=== PATIENT | male | born 1970 | race Caucasian/White ===

== ENCOUNTER 2017-01-11 07:14 | Inpatient (IN) | payer BC ==
[2017-01-11] MEDS ORDERED: NS 0.9% 1000 ML* 1,000 ML IV ONE (08:00)
[2017-01-11] MEDS ORDERED: Vancomycin(*) 1,000 MG in NS 0.9% 250 ML* 250 ML IVPB ONE (08:04)
[2017-01-11] MEDS ORDERED: Ciprofloxacin 400MG IVPREMIX(* 400 MG/200 ML BAG IVPB ONE (08:04)
--- NOTE | 2017-01-11 08:37 | RAD ---
HISTORY: Left middle finger pain COMPARISONS: None VIEWS: 4, Frontal, lateral, and oblique views of the left hand FINDINGS: BONE DENSITY: Normal. BONES: There is no displaced fracture. There is remote posttraumatic deformity to the distal third phalanx JOINTS: There is no arthropathy. ALIGNMENT: There is no dislocation. SOFT TISSUES: Unremarkable. OTHER FINDINGS: There is a punctate radiopaque foreign body in the soft tissues overlying the hypothenar eminence IMPRESSION: 1. NO ACUTE OSSEOUS INJURY. 2. PUNCTATE RADIOPAQUE FOREIGN BODY IN THE SOFT TISSUES OVERLYING THE ULNAR ASPECT OF THE PALM. 3. IF SYMPTOMS PERSIST, RECOMMEND REPEAT IMAGING.
[2017-01-11 08:39] LABS: Hematocrit 44 % (42-52); Hemoglobin 15.1 g/dl (14.0-18.0); Mean Corpuscular HGB Conc 35 g/dl (31-36); Mean Corpuscular Hemoglobin 33 pg (27-31); Mean Corpuscular Volume 95 fL (80-94); Mean Platelet Volume 7 um3 (7.4-10.4); Red Cell Distribution Width 13 % (10.5-15); White Blood Count 7.1 10^3/ul (3.5-10.8)
[2017-01-11 08:56] LABS: Albumin 4.3 g/dL (3.2-5.2); BUN/Creatinine Ratio 19.4 (8-20); C Reactive Protein 6.32 mg/L (< 5.00); Calcium 9.2 mg/dL (8.6-10.3); EGFR African American 151.1 (>60); EGFR Non-African American 117.5 (>60); Globulin 2.6 g/dL (2-4); Potassium 4.3 mmol/L (3.5-5.0); Total Bilirubin 0.4 mg/dL (0.2-1.0); Total Protein 6.9 g/dL (6.4-8.9)
[2017-01-11] MEDS ORDERED: diPHENhydraMINE IV* 50 MG/ML 1 ml VIAL (BENADRYL) IV PRN (09:47)
[2017-01-11] MEDS ORDERED: Morphine INJ* 2 MG/ML 1 ML SYRINGE IV PRN (09:47)
[2017-01-11 09:52] LABS: Erythrocyte Sed Rate 9 mm/Hr (0-14)
[2017-01-11 09:53] LABS: Urine Bilirubin Negative (Negative); Urine Glucose Negative (Negative); Urine Nitrite Negative (Negative)
[2017-01-11] MEDS ORDERED: Lidocaine 2% PF * 5 ML VIAL ONE (12:20)
[2017-01-11] MEDS ORDERED: Midazolam* 1 MG/ML 5 ML VIAL (5 MG) ONE (12:20)
[2017-01-11] MEDS ORDERED: Ketorolac INJ* 30 MG/ML 1 ML VIAL ONE (12:20)
[2017-01-11] MEDS ORDERED: Propofol* 10 MG/ML 20 ML BTL IV PUSH ONE (12:20)
[2017-01-11] MEDS ORDERED: Ondansetron INJ* 2 MG/ML VIAL ONE (12:20)
[2017-01-11] MEDS ORDERED: KETAMINE HCL* 50 MG/ML 10 ML VIAL ONE (12:20)
[2017-01-11] MEDS ORDERED: fentaNYL* 50 MCG/ML 2 ML VIAL (100 MCG VIAL) ONE ×2 (12:20→13:19)
--- NOTE | 2017-01-11 12:41 | PN ---
Progress Note - Progress Note Note: Full H&P note dictated by QUE Yoder, and awaiting basin cleaner. I saw and examined Kenan this morning in the emergency room. He has a puncture type wound over the DIP flexion crease in the left middle finger. He says he developed that wound a couple of weeks ago but it unsure what injured the finger. 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 A few days later the finger swelled up and became painful. He went to the urgent care and was given cephelexin which did not help at all. A couple of days later he returned to the urgent care and was given augmentin. This did initially help and the finger improved somewhat. Two days later while he was camping here near [place] the pain became to significantly increase again and he noticed more swelling in the finger but not too much redness. When the pain was even worse this morning he came to the emergency department. He has moderate to severe pain whenever he bends the finger. It is better when he holds it still in a slightly flexed position. He had already been given a dose of vancomycin and ciprofloxacin in the emergency department prior to my being consulted. VSS Exam shows fusiform swelling of the left middle finger. He is tender all along the flexor tendons from the DIP to the carpal tunnel. He holds the finger in slight flexion and has significant pain with any passive flexion or extension of the finger. There is a healing puncture type wound over the ulnar aspect of the DIP flexion crease. The finger is slightly warm. There is just mild erythema in the finger. He has a slightly shortened finger from a prior traumatic amputation of the distal tip as a child. Imaging shows no bony anomalies in the finger. There is a radioopaque foreign body in the ulnar palm anterior to the fifth metacarpal. A/P: Clinical concern for left middle finger pyogenic flexor tenosynovitis. Plan is for I&D and then IV antibiotics. ID consult. Will obtain cultures.
[2017-01-11] MEDS ORDERED: Ondansetron INJ* 2 MG/ML VIAL IV PRN (12:50)
[2017-01-11] MEDS ORDERED: oxyCODONE/Acetamin 5/325 MG* TAB PO PRN (12:50)
[2017-01-11] MEDS ORDERED: fentaNYL* 50 MCG/ML 2 ML VIAL (100 MCG VIAL) IV PRN (12:50)
--- NOTE | 2017-01-11 12:56 | HP ---
HISTORY AND PHYSICAL: DATE OF ADMISSION: 01/11/17 PROVIDER: Dr. Fitz Menendez. CHIEF COMPLAINT: Left 3rd finger pain and swelling. HISTORY OF PRESENT ILLNESS: Mr. Fletcher is a 46-year-old gentleman who presents to the emergency room today with complaints of ongoing left finger pain and swelling that started about 1.5-2 weeks ago. He states that he did have a small wound near the DIP joint of the palmar third finger that healed over. He' s unsure how he got the wound. He works at a [employer] and he gets wounds on the hands all the time. A couple of days later the finger began to swell. He has been seen a couple of times at a remote Urgent Care Facility over the last couple of weeks and had been put on oral antibiotics, first cephalexin and then augmentin. He states that he initially noticed some mild improvement after he started the augmentin; however, about 2 days ago the pain and swelling got significantly worse despite being on antibiotics. He did have a partial amputation to the very most distal tip of the finger several years ago; however , he has had no complications with that since. PAST MEDICAL HISTORY: None. PAST SURGICAL HISTORY: Left knee arthroscopy and tonsillectomy and myringotomy tubes as a child. He reports no complications with anesthesia with any of those procedures. CURRENT MEDICATIONS: 1. Multivitamin daily. 2. Augmentin. ALLERGIES: No known drug allergies. 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 He lives with his . He drinks a few alcoholic beverages during the week. He smokes a pack per day but has been cutting back recently. He denies any illicit drug use. REVIEW OF SYSTEMS: Constitutional: Negative for recent hospitalizations, fevers, chills, night sweats or unexplained weight loss. HEENT: Negative for headaches, vision changes, hearing changes, sore throat or runny nose. Cardiovascular: Negative for chest or arm pain with exertion and history of heart attack, heart murmur, heart palpitations, high blood pressure, embolism or deep vein thrombosis. Respiratory: Negative for chronic cough, shortness of breath with exertion, asthma or COPD. Gastrointestinal: Negative for heartburn , nausea, vomiting. Positive for recent diarrhea due to the antibiotics. Negative for constipation or GERD. Genitourinary: Negative for nighttime urination, frequency of urination, urinary tract infection of kidney problems. Musculoskeletal: Negative for any joint pain, back pain, neck pain or recent fractures. Skin: Negative for rashes, lesions, lumps or sores. Neurologic: Negative for history of seizures, stroke, epilepsy, depression, anxiety. Endocrine: Negative for diabetes or thyroid problems. Hematology: Negative for easy bleeding, bruising or anemia. PHYSICAL EXAMINATION GENERAL: He is a well-developed, well-nourished, pleasant male in no acute distress at rest. He is alert and oriented x3 with appropriate mood and affect. VITAL SIGNS: The patient is 5 feet 9 inches, 210 pounds, blood pressure 143/93 , pulse of 77, respirations 18, oxygen saturation 100, temperature 98.0. HEENT: Normocephalic, atraumatic. His hearing and vision are grossly intact. NECK: His trachea is midline. RESPIRATORY: Lungs clear to auscultation bilaterally. No wheezes, rales or rhonchi. CARDIOVASCULAR: Regular rate and rhythm. No murmurs, rubs or gallops. Normal S1, S2. ABDOMEN: Soft, nondistended, nontender. Normal bowel sounds. EXTREMITIES: Exam of the left upper extremity, there is a well-healed wound to the distal palmar aspect of the DIP joint. There is diffuse edema throughout the finger. He is tender to palpation along the flexor tendon on the palmar aspect of the hand. This extends about to the mid palm. He has no tenderness proximal to that and into the wrist. He is able to flex the finger but is significatnly limited secondary to pain and stiffness. He has painful but full passive extension of the finger. His sensation to light touch is intact. He has 2+ radial pulse. IMPRESSION: Clinical picture concerning for left third finger flexor tendon tenosynovitis. PLAN: The patient is to undergo left third finger irrigation and debridement by Dr. Menendez later today. He will be admitted for IV antibiotics postoperatively. The risks, benefits, and postoperative course were discussed with the patient and he is willing to proceed. All of his questions were answered to his full satisfaction. QUE RAHMAN [id number]/[facility] #: [id number] CHER
[2017-01-11] MEDS ORDERED: Famotidine IV* 10 MG/ML 2 ML (20 mg) ONE (13:10)
[2017-01-11] MEDS ORDERED: HYDROmorphone* 1 MG/ML 1 ML SYR ONE (14:12)
[2017-01-11] MEDS ORDERED: Bupivacaine 0.5% SDV PF* 30 ML VIAL ONE (14:17)
[2017-01-11] MEDS ORDERED: HYDROcodone/ACETAMIN 5-325 MG* 1 TAB PO PRN (16:09)
[2017-01-11] MEDS ORDERED: ZOSYN 3.375 GM x ONE DOSE over 30 miuntes IVPB ×2 (17:00)
[2017-01-11] MEDS ORDERED: Vancomycin per Pharmacy* NOTE FOLLOW UP PRN (17:20)
[2017-01-11] MEDS: Vancomycin(*) 1,000 MG in NS 0.9% 250 ML* 250 ML IVPB SCH (17:57)
--- NOTE | 2017-01-11 18:25 | ED ---
Charles Diaz Auryana, scribed for Mervin Davalos MD on 01/11/17 at 0741 . Skin Complaint - HPI Summary HPI Summary: 46 year old male presents with left middle finger swelling worse since yesterday. Patient states that the pain is now traveling into his hand. Patient reports that he discovered a small cut on 12/24/16 and was seen at Urgent care - ABX 01/03/17. He reports that the pain and swelling is unimproved with Augmentin ABX - stated was improving until yesterday. Pain is worse with flexion and extension of the finger. PMHx is significant for meniscus tear, ear surgery, and finger surgery - reattachment. He denies any FHx. SHx is significant for tobacco and alcohol use but denies any recreational drug use. - History of Current Complaint Chief Complaint: EDRashSkinAbscess Time Seen by Provider: 01/11/17 07:34 Stated Complaint: POSSIBLE INFECTION Hx Obtained From: Patient Onset/Duration: Started Days Ago, Atraumatic, Still Present, Worse Since - yesterday Skin Exposure Onset/Duration: Weeks Ago - reports cut 12/24/16 Timing: Constant Onset Severity: Mild Current Severity: Moderate Pain Intensity: 5 Pain Scale Used: 0-10 Numeric Skin Location: Diffuse - left middle finger Character: Swelling, Pain Aggravating Symptom(s): Other: - movement Alleviating Symptom(s): Other: - no improvement with abx Associated Signs & Symptoms: Negative Similar Episode/Dx as: see HPI - Allergy/Home Medications Allergies/Adverse Reactions: Allergies Allergy/AdvReac Type Severity Reaction Status Date / Time [place] Allergy Hives Verified 01/11/17 07:16 PMH/Surg Hx/FS Hx/Imm Hx Musculoskeletal History: Reports: Other Musculoskeletal History - meniscus tear - Surgical History Surgery Procedure, Year, and Place: ear surgery, finger surgery - reattachment Infectious Disease History: No Infectious Disease History: Denies: Traveled Outside the [place] in Last 30 Days - Family History Known Family History: Positive: Diabetes - Social History Occupation: Employed Full-time - other Lives: With Family Alcohol Use: Occasionally Hx Substance Use: No Substance Use Type: Reports: None Hx Tobacco Use: Yes Smoking Status (MU): Current Every Day Smoker Review of Systems Constitutional: Negative Eyes: Negative ENT: Negative Cardiovascular: Negative Respiratory: Negative Gastrointestinal: Negative Genitourinary: Negative Positive: Edema - left middle finger, Other - left middle finger pain Positive: Other - left middle finger swelling Neurological: Negative Psychological: Normal All Other Systems Reviewed And Are Negative: Yes Physical Exam - Summary Physical Exam Summary: VITAL SIGNS: Reviewed. GENERAL: Patient is a well-developed and nourished male who is lying comfortable in the stretcher. Patient is not in any acute respiratory distress. HEAD AND FACE: No signs of trauma. No ecchymosis, hematomas or skull depressions. No sinus tenderness. EYES: PERRLA, EOMI x 2, No injected conjunctiva, no nystagmus. EARS: Hearing grossly intact. Ear canals and tympanic membranes are within normal limits. MOUTH: Oropharynx within normal limits. NECK: Supple, trachea is midline, no adenopathy, no JVD, no carotid bruit, no c- spine tenderness, neck with full ROM. CHEST: Symmetric, no tenderness at palpation LUNGS: Clear to auscultation bilaterally. No wheezing or crackles. CVS: Regular rate and rhythm, S1 and S2 present, no murmurs or gallops appreciated. ABDOMEN: Soft, non-tender. No signs of distention. No rebound no guarding, and no masses palpated. Bowel sounds are normal. EXTREMITIES: left middle finger swelling with good ROM - pain with flexion and extension. otherwise FROM in all other major joints, no edema, no cyanosis or clubbing. NEURO: Alert and oriented x 3. No acute neurological deficits. Speech is normal and follows commands. SKIN: Dry and warm Triage Information Reviewed: Yes Vital Signs On Initial Exam: Initial Vitals Temp Pulse Resp BP Pulse Ox 98.0 F 77 18 143/93 100 01/11/17 07:18 01/11/17 07:18 01/11/17 07:18 01/11/17 07:18 01/11/17 07:18 Vital Signs Reviewed: Yes Diagnostics - Vital Signs Vital Signs Temp Pulse Resp BP Pulse Ox 01/11/17 07:18 98.0 F 77 18 143/93 100 - Laboratory Result Diagrams: 01/11/17 08:20 01/11/17 08:20 Lab Statement: Any lab studies that have been ordered have been reviewed, and results considered in the medical decision making process. - Radiology left hand XR Xray Interpretation: Positive (See Comments) - IMPRESSION: 1. NO ACUTE OSSEOUS INJURY. 2. PUNCTATE RADIOPAQUE FOREIGN BODY IN THE SOFT TISSUES OVERLYING THE ULNAR ASPECT OF THE PALM. 3. IF SYMPTOMS PERSIST, RECOMMEND REPEAT IMAGING. Radiology Interpretation Completed By: Radiologist Course/Dx - Course Assessment/Plan: Test results WNL except glucose 124 and CRP 6.3 . UA is negative for U.T.I. Hand XR IMPRESSION: 1. NO ACUTE OSSEOUS INJURY. 2. PUNCTATE RADIOPAQUE FOREIGN BODY IN THE SOFT TISSUES OVERLYING THE ULNAR ASPECT OF THE PALM. 3. IF SYMPTOMS PERSIST, RECOMMEND REPEAT IMAGING. In the ER course , patient given IV fluids, vancomycin, and Cipro because I am concerned about tendon synovitis. At this time, discuss Dr. Menendez hand surgery. He came to assess patient, and after assessment, he recommends admission to his services for further workup and management. Patient is hemodynamically stable and A&O x3. Dx: tendon synovitis. - Diagnoses Provider Diagnoses: tendon synovitis - Physician Notifications Discussed Care Of Patient With: Dr. Menendez Time Discussed With Above Provider: 07:59 - will see patient in ED; agrees to admit to the OR Instructed by Provider To: Other - admit to OR Discharge - Discharge Plan Condition: Stable Disposition: OTHER Discharge Disposition Comment: admit to the OR The documentation as recorded by the Charles perez Auryana accurately reflects the service I personally performed and the decisions made by me, Mervin Davalos MD.
[2017-01-11] MEDS: ZOSYN 3.375 GM Q8H per EXTENDED INFUSION IVPB SCH ×2 (21:10)
[2017-01-11] MEDS: Ibuprofen TAB* 600 MG PO PRN (21:16)
[2017-01-12] MEDS: Vancomycin(*) 1,000 MG in NS 0.9% 250 ML* 250 ML IVPB SCH ×4 (02:07→22:01)
--- NOTE | 2017-01-12 03:46 | OP ---
OPERATIVE REPORT: DATE OF OPERATION: 01/11/17 - inpatient, room #338-01 DATE OF : 70 SURGEON: Fitz Menendez MD MEMBERSHIP ASSISTANT: QUE Mireles ANESTHESIOLOGIST: Dr. Edwards. ANESTHESIA: General. PRE-OP DIAGNOSIS: Left middle finger pyogenic flexor tenosynovitis. POST-OP DIAGNOSES: 1. Left middle finger pyogenic flexor tenosynovitis. 2. Left mid palmar space infection. PROCEDURE PERFORMED: 1. I and D of left middle finger flexor tendon sheath. 2. I and D of left hand mid-palmar space. 3. Flexor tendon tenosynovectomy, left middle finger in the palm. INDICATIONS: Kenan is a 46-year-old gentleman, who about a week and a half ago had a wound near the DIP joint of the left middle finger. 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 Couple of days later , it started to hurt more. He went to the Urgent Care and got put on Keflex and then a couple of days later, he went back because it was not getting better and he got put on Augmentin. The finger was feeling better, but was still sore and quite painful. Couple of days later, it started getting more painful, so while he was camping out here in [place], he came to the emergency room. I saw him there and his clinical picture is very concerning for pyogenic flexor tendon tenosynovitis. Prior to my being consulted, he had already received a dose of vancomycin and ciprofloxacin in the ED. I talked to Kenan about the need that I felt to perform an I and D. We talked about risks and benefits and he elected to proceed. ESTIMATED BLOOD LOSS: 5 mL. COMPLICATIONS: None. FINDINGS: Extensive murky fluid all along the flexor tendons. There was very inflamed and poor looking tenosynovium all about the flexor tendons starting just proximal to the A1 jerrica, going back up towards the palm. DESCRIPTION OF PROCEDURE: Kenan was seen in the preoperative holding area. The correct site, side, and procedure were identified. We came back to the operating room where general anesthesia was induced and we had the arm prepped and draped in the usual fashion and a formal time-out performed. The arm was exsanguinated and the tourniquet inflated to 250 mmHg. I then began by making a Rebecca type incision over the A1 jerrica of the left middle finger. As I went down through the subcutaneous fat, I began to encounter murky fluid. The A1 jerrica was looking inflamed and degenerative. I opened this up longitudinally, and there was significantly more murky fluid. I went ahead and took aerobic and anaerobic cultures. Skin flap was sewn back. Once I had excellent exposure proximally, I went ahead and turned my attention distally and I performed a Rebecca type incision over the DIP joint flexion crease. The tissue deep to the site of the puncture wound was all excised. A full thickness flap with the exception of that tissue was raised. The flexor tendon sheath right at the distal aspect was very degenerative to the point so that, I just excised it with a rongeur as there was not much substance to it. More proximally, as I approached the A4 jerrica, it started to appear more normal looking. There was quite a bit of murky fluid. I took another set of aerobic and anaerobic cultures. I used my #15 blade to longitudinally open up the distal aspect of the A4 jerrica. There was a bit of fraying to the tendon distally. I then introduced an 8-mm pediatric feeding tube along the course of flexor tendon sheath. I irrigated it copiously. Once I had irrigated that out , I turned my attention back proximally. I opened up little bit more tissue overlying the flexor tendons proximally heading back towards the palm. There I kept getting more and more murky fluid and it was becoming obvious that there was extensive tenosynovitis all about the flexion tendons and this was a significant problem area. I took my skin incision in a Rebecca type fashion, extended back a couple of centimeter back towards the direction of the carpal tunnel following the path of the flexor tendons. The palmar fascia was opened, care was taken to protect the common digital nerves. I went ahead and excised all of the diseased looking tenosynovium. I had to extend my incision back one more time a little bit further proximally until I began to encounter normal looking tenosynovium just about at the level of the superficial palmar arch. The superficial palmar arch was indeed visualized and protected. I performed a complete tenosynovectomy in this area. There was some fraying and degeneration in the tendons at this level. I went ahead and opened up the mid palmar space, I copiously irrigated this out, there was some more murky fluid. I continued irrigating until everything was absolutely clean and all the fluid was just cleaned, normal saline appearing fluid and all the murkiness was gone. With the flexor tendons completely cleaned of all of the tenosynovitis, I again passed the pediatric feeding tube up and down the flexor tendon sheath in the finger and irrigated it copiously. A total of 1 L of irrigation fluid was used. At this point, I contemplated opening up the rest of the fingers just to perform a full inspection of the flexor tendons; however, it looked like most of the disease had been proximal and distally it was looking better, and so I elected not to perform any more skin incision. With everything clean looking, I went ahead and let skin flaps fall back. The proximal aspect of the incision was closed with 4-0 nylon suture. The incision on the distal palm and the finger was closed with 5-0 simple interrupted nylon sutures. I infiltrated just a bit of 0.5% Marcaine in to the operative area. The wounds were dressed with Xeroform, sterile 4x4's, some Ct, and Coban dressing was applied. He was then woken up and taken to the recovery room in stable condition. POSTOPERATIVE PLAN: Kenan is going to be admitted to the hospital. I am going to continue him on vanco and Zosyn pending cultures. I am going to have Dr. Sarabia with Infectious Disease see him. We will reexamine the wound on Thursday and if it looks good and Dr. Sarabia had seen him, we will discuss disposition from there. [id number]/[facility] #: [id number] [facility] CENTERJj
[2017-01-12] MEDS: ZOSYN 3.375 GM Q8H per EXTENDED INFUSION IVPB SCH ×2 (05:04)
[2017-01-12] MEDS: Ibuprofen TAB* 600 MG PO PRN ×4 (05:09→23:37)
--- NOTE | 2017-01-12 09:29 | PN ---
Progress Note - Progress Note Note: Doing well, feeling less pain in the finger. Tmax 99.1, VSS Incision looks good, finger resting in position of slight flexion, LT sensation intact at the fingertip Cultures: no growth to date A/P: POD#1 s/p I&D of 2 week old flexor tenosynovitis follow up cultures but may be negative as he had been on antibiotics previously and got vanc/cipro in the ED Incision closed very loosely, plan for warm soapy water soaks BID continue vanc/zosyn Infectious disease consult
[2017-01-12] MEDS ORDERED: Vancomycin Trough Check NOTE FOLLOW UP ONE (10:00)
[2017-01-12] MEDS: ZOSYN 3.375 GM Q6H - Intermittant 30 min Infusion IVPB SCH ×4 (14:30→19:57)
[2017-01-12] MEDS ORDERED: Vancomycin(*) 1,250 MG in NS 0.9% 250 ML* 250 ML IVPB SCH (18:00)
[2017-01-13] MEDS: ZOSYN 3.375 GM Q6H - Intermittant 30 min Infusion IVPB SCH ×8 (02:08→19:47)
[2017-01-13] MEDS: Vancomycin(*) 1,000 MG in NS 0.9% 250 ML* 250 ML IVPB SCH ×2 (04:01→11:09)
[2017-01-13] MEDS: Ibuprofen TAB* 600 MG PO PRN ×3 (06:05→21:57)
--- NOTE | 2017-01-13 09:23 | PN ---
Progress Note - Progress Note SOAP: Subjective: []Patient seen at bedside. He is currently soaking his left hand for a dressing change. Finger and hand stiff but overall pain is improved since surgery. Awaiting consult from Dr. Sarabia from ID. Objective: [] Vital Signs Temp 98.0 F 01/13/17 07:35 Pulse 64 01/13/17 07:35 Resp 18 01/13/17 07:56 BP 121/78 01/13/17 07:35 Pulse Ox 93 01/13/17 07:56 Intake & Output 01/12/17 01/13/17 01/13/17 18:59 06:59 18:59 Intake Total 1855 1272 520 Output Total 1800 350 Balance 55 922 520 Intake: IV Fluids 375 120 ABX - VANCOMYCIN 265 Zosyn 110 120 IVPB 732 ABX - VANCOMYCIN 510 Zosyn 222 Oral 1480 540 400 Output: Urine 1800 350 Other: Estimated Void Medium # Voids 3 Laboratory Results - last 24 hr 01/12/17 09:40 Vancomycin Trough 6.5 Microbiology 01/11/17 13:52 Anaerobic Culture - Preliminary Wound - Finger No Growth Day 1 01/11/17 13:52 Gram Stain - Final Finger Wound Culture - Preliminary No Growth Day 1 Left hand incisions appear to be healing well Left long finger and palmar swelling present but not excessive + sensation tip of left long finger jog of finger motion limited by swelling/ incisional pain Assessment: []s/p I&D 3rd finger flexor tenosynovitis/ palmar hand infection POD #2 Plan: []Soapy water soaks with dressing changes BID Encourage finger motion Zosyn and Vanco with ID consult pending Home when antibiotic plan set
[2017-01-13] MEDS ORDERED: Vancomycin Trough Check NOTE FOLLOW UP ONE (10:00)
--- NOTE | 2017-01-13 15:29 | CONS ---
CONSULTATION REPORT: DATE OF CONSULTATION: 01/13/17 REQUESTING PHYSICIAN: Fitz Menendez MD CONSULTING SERVICE: Infectious Disease. REASON FOR CONSULTATION: Left hand infection. IMPRESSION: Left 3rd finger flexor suppurative tenosynovitis, Gram stain and culture negative. He was on Augmentin for a week or so, which likely explains the negative culture. No clear preceding i njury, suspect skin delilah, excluding methicillin-resistant Staphylococcus aureus as he is improving on Augmentin. His improvement plateaued and then was found to have suppurative tenosynovitis, which would not have improved without drainage as he has had now. RECOMMENDATIONS: Continue Zosyn for another 24 hours, then we can give him a dose of ceftriaxone be fore he goes to cover him for another 24 hours before he travels home and we will plan on oral antib iotics for another 3 weeks at that point, assuming he is continuing to improve. HISTORY OF PRESENT ILLNESS: This is a 46-year-old man admitted with left hand pain and swelling. F or about the last 2-1/2 weeks, he has had some swelling, pain and stiffness in the left third finger with decreased range of motion. He had Keflex for a few days from an Urgent Care where he lives [facility], did not have much improvement, went back to Urgent Care, he was given Augmentin. He was starting to see improvement after about a week of that with improved range of motion, decreased swe lling and pain. He was camping in this area over the weekend and then the finger started swelling a gain and the range of motion decreased significantly. He came to the ER on the . His white blo od cell count was 7 and C-reactive protein was 6. He was felt to have a tenosynovitis, was taken to the operating room by Dr. Menendez on the for incision and debridement of the suppurative tenosy novitis. Gram stain and culture were negative. He has not had anything like this before and did no t recall a preceding injury, though does work with his hands extensively. He had had no fevers, chi lls or sweats accompanying his symptoms. Today, the swelling and range of motion continue to improve , though not back to baseline. PAST MEDICAL HISTORY: None. MEDICATIONS: 1. Vancomycin. 2. Zosyn 3.375 g every 6 hours. 3. Morphine p.r.n. 4. Ibuprofen p.r.n. ALLERGIES: No known drug allergies. FAMILY HISTORY: No recurrent infections. SOCIAL HISTORY: Lives in [place]. He runs a [email or web address]. No travel or sick contacts. REVIEW OF SYSTEMS: A full review was negative except as noted above. PHYSICAL EXAMINATION: Vital Signs: Temperature is 37, heart rate 54, respiratory rate 16, blood pr essure 116/75, O2 sat 95% on room air. General: He is awake, in no distress. Neurologic: He is o riented x3. Follows all commands. Moves all extremities. HEENT: There is no conjunctival hemorrh age. Oropharynx without lesions. Neck: Neck is supple without nuchal rigidity. Lymph Nodes: The re is no cervical, supraclavicular, inguinal, axillary, or epitrochlear lymphadenopathy. Heart: Reg ular rate and rhythm without murmurs, rubs or gallops. Lungs: Clear to auscultation bilaterally. Abdomen: Soft, nontender, nondistended without hepatosplenomegaly. Skin: There is no rash or spli nter hemorrhages. Musculoskeletal: No spine tenderness to palpation. The left third finger is diff usely edematous. There is a distal incision which is intact without serous drainage or erythema. T here is a palmar incision without erythema or drainage. There is mild diffuse edema. There is decre ased flexion, normal extension of the third finger. Other fingers are nontender. No erythema or ed brian. There is no crepitus with flexion. DIAGNOSTIC STUDIES/LABORATORY DATA: Creatinine is 0.7. CRP was 6. Urinalysis negative. Please see impressions and recommendations outlined above. Thank you for asking me to see Mr. Fletcher in consultation. [id number]/[facility] #: [id number]
[2017-01-14] MEDS: ZOSYN 3.375 GM Q6H - Intermittant 30 min Infusion IVPB SCH ×4 (02:02→07:50)
--- NOTE | 2017-01-14 12:41 | PN ---
Progress Note - Progress Note SOAP: Subjective: []Patient seen at bedside. Doing very well. Pain minimal and not taking any narcotic pain medications. IV Ceftriaxone just given as ordered by Dr. Sarabia. He is ready to go home. Objective: [] Vital Signs Temp 97.7 F 01/14/17 07:07 Pulse 55 01/14/17 07:07 Resp 17 01/14/17 07:07 BP 119/70 01/14/17 07:07 Pulse Ox 100 01/14/17 07:07 Intake & Output 01/13/17 01/14/17 01/14/17 18:59 06:59 18:59 Intake Total 1550 1435 740 Output Total 400 250 Balance 1150 1185 740 Intake: IV Fluids 160 20 NS 40 20 Zosyn 120 IVPB 390 115 120 ABX - VANCOMYCIN 270 Zosyn 120 115 120 Oral 1000 1320 600 Output: Urine 400 250 Other: Estimated Void Medium Medium # Bowel Movements 2 Estimated Stool Amount Small # Voids 3 Microbiology 01/11/17 13:52 Anaerobic Culture - Preliminary Wound - Finger No Growth Day 3 01/11/17 13:52 Gram Stain - Final Finger Wound Culture - Final No Growth Day 2 Left hand palmar incisions both healing well, no active drainage sensation and circulation remain intact left UE slightly better motion of left long finger today Assessment: []s/p I&D left long finger and palmar hand secondary to infected flexor tenosynovitis POD #2 Plan: []Dr. Sarabia recommends 1 dose of IV Ceftriaxone which was given. This will give him another 24 hrs of coverage. He then recommends po Augmentin 875mg po BID for 21 days. Recommend pro biotic with the abx to help prevent GI distress. Discharge home today, Follow up with Dr. Menendez in 7- 10 days in office
[2017-01-14 13:00] VITALS: BP 122/78
[2017-01-14] MEDS: Ibuprofen TAB* 600 MG PO PRN (13:10)
--- NOTE | 2017-01-14 23:43 | DS ---
DISCHARGE SUMMARY: DATE OF ADMISSION: 01/11/17 DATE OF DISCHARGE: 01/14/17 ATTENDING PHYSICIAN: Dr. Fitz Menendez. (DICTATED BY [facility]) ADMISSION DIAGNOSES: 1. Left long finger infected flexor tenosynovitis. 2. Left mid palmar space infection. SURGERY PERFORMED: 1. Incision and drainage of left long finger flexor tendon sheath. 2. Incision and drainage of left hand mid palmar space. 3. Flexor tendon tenosynovectomy, left middle finger palmar. HOSPITAL COURSE: The patient is a 46-year-old male who had a wound noted near the DIP joint of the left middle finger about 2 weeks prior to this admission. 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 He noted increased pain in the finger and went to the Urgent Care and was put on Keflex and then switched a couple of days later to Augmentin as he did not tolerate the Keflex. His finger felt slightly better, but he still had a fair amount of soreness and difficulty with motion. Due to the fact that he continued to have significant pain, he came to the emergency department after camping here in the [facility]. He was seen by Ester Mathias PA-C and Dr. Menendez felt that his clinical picture was indicative of a pyogenic flexor tendon tenosynovitis. It was felt that he would best benefit from incision and drainage. The patient elected to proceed and he was taken to the operating room under the care of Dr. Fitz Menendez on the day of 01/11/17 for the aforementioned procedures. He tolerated the procedures well and left the operating room in stable condition. Postoperatively, he was placed on vancomycin and Zosyn. Infectious Disease consultation was sort out and he was seen by Dr. Jordon Sarabia. He recommended discontinuing the vancomycin and continuing with the Zosyn with transition to one dose of ceftriaxone on the day of his discharge that being 01/14/17. He then recommended Augmentin 875 mg p.o. b.i.d. for 21 days. The patient during his hospital stay had minimal pain. He underwent twice daily soapy water soaks with dressing changes. He worked on range of motion of the finger independently. It was felt he was medically and orthopedically stable for discharge to home on the date of . CONDITION ON DISCHARGE: The patient is afebrile. His vital signs are stable. His hand incisions are healing without evidence of active drainage. His swelling has come down. There is no erythema. His pain level is minimal and he is not requiring narcotic pain medications. His neurovascular status is intact in the left hand and fingers. PLAN: Discharged to home. He may bath with warm soapy water and apply a light dressing as necessary. He will continue with the Augmentin 875 mg p.o. b.i.d. for 3 weeks as recommended by Dr. Sarabia. He will continue to work on range of motion exercises of the third digit and hand. I recommend a followup appointment with Dr. Menendez in 7 to 10 days in the office. The patient will also continue with the probiotic to help prevent GI distress from the Augmentin antibiotic. The patient will call Dr. Sarabia if he has any difficulties tolerating the Augmentin. He will call Dr. Menendez for any obvious increased pain , swelling, redness, drainage from his incisions. [facility] [id number]/[facility] #: [id number] MTDD
== END 2017-01-14 13:25 | disposition home or self-care (01) | DRG 316 ==
LOC: ED 07:14 → SSU 09:47
PROVIDERS: ADMIT Orthopaedic Surgery Hand Surgery; ATTEND Orthopaedic Surgery Hand Surgery
PROC: 0L980ZZ Drainage of Left Hand Tendon, Open Approach (ICD-10-PCS; 2017-01-11)
PROC: 0J9K0ZZ Drainage of Left Hand Subcutaneous Tissue and Fascia, Open Approach (ICD-10-PCS; 2017-01-11)
PROC: 0LB80ZZ Excision of Left Hand Tendon, Open Approach (ICD-10-PCS; principal; 2017-01-11 13:00)
DX: M65.842 Other synovitis and tenosynovitis, left hand (principal); L08.89 Other specified local infections of the skin and subcutaneous tissue
CPT/HCPCS: 36415; 80053; 80202; 81003; 83605; 85025; 85652; 86140; 87070; 87073; 87205; 88304; A9270-GY; J0696; J0744; J1170; J1885; J2250; J2405; J2543; J2704; J3010; J3370